=== PATIENT | male | born 1965 | race Caucasian/White ===

== ENCOUNTER → 2018-04-29 | Day surgery (SDC) | payer OTHER ==
[~2018-04-29] MED LIST: NORCO 5-325 TA1 EACH PO
--- NOTE | 2018-05-02 09:57 | H ---
[address] [address] HISTORY AND PHYSICAL Name: SAMY QUINONES Room: [facility]#: [id number] Admission: 04/29/18 Attend Phys: Diane Rodríguez MD Discharge: Date of : 69 Report #: [id number] THIS REPORT FOR: //name// CC: Diane Aguilera DATE OF SERVICE: 04/29/2018 ADMITTING DIAGNOSIS: Incarcerated chronic umbilical hernia. HISTORY OF PRESENT ILLNESS: The patient is a 52-year-old male patient of Dr. Aguilera who presented to my clinic within 24 hours of an acute onset of umbilical pain and a palpable mass, which was difficult to reduce in his office and he was sent over for evaluation and treatment. PAST MEDICAL HISTORY: He denies any significant medical history. PAST SURGICAL HISTORY: Only dental surgery for tooth extraction. MEDICATIONS: He is on no medications. ALLERGIES: He reports no known allergies. REVIEW OF SYSTEMS: Otherwise was unremarkable for any recent nausea or vomiting, but does have abdominal tenderness in the umbilical site. PHYSICAL EXAMINATION: GENERAL: He is a modestly obese male in no acute distress. HEAD, EARS, EYES, NOSE AND THROAT: Unremarkable. NECK: Supple. LUNGS: Clear. CARDIAC: Regular rate and rhythm without murmur. ABDOMEN: Soft. EXTREMITIES: Without varicosities or pitting edema. LABORATORY DATA: Will be taken. ASSESSMENT AND PLAN: Umbilical hernia repair. Risks and benefits were explained. His questions answered. He understands and wishes to proceed. <ELECTRONICALLY SIGNED> By: Diane Rodríguez MD 05/02/18 0957 [id number] Rodríguez MD /nt
--- NOTE | 2018-05-02 09:58 | OP ---
[address] [address] OPERATIVE REPORT Name: STACIESAMYJASS VALENTINE Room: [facility].#: [id number] Admission: 04/29/18 Attend Phys: Diane Rodríguez MD Discharge: Date of : 69 Report #: [id number] THIS REPORT FOR: //name// CC: Diane Aguilera DATE OF SERVICE: 04/29/2018 PREOPERATIVE DIAGNOSIS: Incarcerated umbilical hernia. POSTOPERATIVE DIAGNOSIS: Incarcerated umbilical hernia. OPERATIVE PROCEDURE: Reduction and repair of incarcerated umbilical hernia with a 4.3 cm Ventralex mesh and 0 Prolene. ANESTHESIA: Laryngeal mask with 0.5% Marcaine infiltrated into the wound site. DESCRIPTION OF PROCEDURE: The patient was placed under laryngeal mask anesthesia and the abdomen was shaved, prepped and draped in the usual sterile fashion. A timeout taken and antibiotics were given. I infiltrated in the infraumbilical crease with 0.5% Marcaine and made a 5 cm transverse curvilinear incision in the infraumbilical crease. The edges were lifted up with 2 Adson's and cautery used to dissect into the subcutaneous tissues. The hernia sac was encountered, dissected off of the umbilical stalk and reduced back into the abdominal wall defect. It was patulent enough to allow ____ this was approximately 2 cm wide, so I decided to put in a 4.3 cm Ventralex mesh. It was brought onto the field and fed into the defect and pulled up with its straps against the anterior abdominal wall; 0 Prolene was passed through 4 locations at the 12 o'clock, 3 o'clock, 6 o'clock, and 9 o'clock positions and tied securely. Then, the excess strap was cut away. We checked for bleeding points and then closure was accomplished by 3-0 PDS to re-tack the umbilical stalk down to the anterior abdominal wall and then the epidermis was closed with 4-0 PDS sutures and sealed with Dermabond and abdominal binder placed. Estimated blood loss 5 mL. Sponge and instrument count correct. The patient was taken off laryngeal mask anesthesia and returned to recovery room. <ELECTRONICALLY SIGNED> By: Diane Rodríguez MD 05/02/18 0958 [id number] Rodríguez MD /nt
== END | disposition home or self-care (01) ==
LOC: M.SUR 08:48
DX: K42.0 Umbilical hernia with obstruction, without gangrene (principal); Z79.891 Long term (current) use of opiate analgesic; Z98.890 Other specified postprocedural states

== ENCOUNTER 2019-10-28 02:43 | Emergency (ER) | payer OTHER ==
[~2019-10-28] VITALS: Ht 175.3 cm; Wt 103.9 kg
[2019-10-28 03:12] LABS: ABSOLUTE BASOPHILS 0.1 thou/uL (0.0-0.2); ABSOLUTE EOSINOPHILS 0.1 thou/uL (0.0-0.7); ABSOLUTE LYMPHOCYTES 1.6 thou/uL (0.8-5.3); ABSOLUTE NEUTROPHILS 8.6 thou/uL (1.6-8.1); BASOPHILS 0.7 %; EOSINOPHILS 0.9 %; HEMATOCRIT 44.6 % (42.0-52.0); HEMOGLOBIN 15.1 gm/dL (14.0-18.0); LYMPHOCYTES 13.9 %; MCH 30.6 pg (26.0-34.0); MCHC 33.9 g/dL (28.0-37.0); MCV 90.3 fL (80.0-100.0); MONOCYTES 9.1 %; MPV 7.4 fl. (7.2-11.1); NUCLEATED RBCS 0 /100WBC; PLATELET COUNT* 380 thou/uL (150-400); POLYS 75.4 %; RBC 4.93 mil/uL (4.50-6.00); RDW-CV 14.1 % (10.5-14.5); WBC 11.5 thou/uL (4.0-11.0)
[2019-10-28 03:21] LABS: CALCIUM 9.1 mg/dL (8.5-10.1); CREATININE 1.2 mg/dL (0.6-1.3); POTASSIUM 4.2 mmol/L (3.5-5.1)
[2019-10-28 04:17] LABS: URINE BILIRUBIN NEGATIVE (Negative); URINE BLOOD 3+ (Negative); URINE CLARITY CLEAR; URINE COLOR YELLOW; URINE GLUCOSE-RANDOM NEGATIVE (Negative); URINE KETONES NEGATIVE (Negative); URINE LEUKOCYTES-REFLEX NEGATIVE (Negative); URINE NITRITE-REFLEX NEGATIVE (Negative); URINE PROTEIN NEGATIVE (Negative); URINE SPECIFIC GRAVITY >= 1.030 (1.005-1.030); URINE UROBILINOGEN 0.2 E.U./dl (0.2-1.0)
[2019-10-28] MEDS ORDERED: PERCOCET 7.5-31 EAC1 PO (04:21)
[2019-10-28] MEDS ORDERED: ZOFRAN ODT4 MG PO (04:21)
[2019-10-28 04:35] LABS: CASTS None Seen /LPF (None Seen); SQUAMOUS NONE SEEN /LPF (0-3); URINE RBC 3-10 Few /HPF (0-2)
[2019-10-28 04:36] LABS: BACTERIA-REFLEX 1-9 Few /HPF (None Seen); CRYSTALS None Seen /LPF (None Seen); MUCUS 4-6 Moderate strn/LPF (None Seen); URINE WBC-REFLEX None Seen /HPF (0-5)
[2019-10-28 04:39] VITALS: BP 131/77
== END 2019-10-28 04:43 | disposition home or self-care (01) ==
LOC: M.ERS 02:43
PROVIDERS: Emergency Medicine
DX: N20.1 Calculus of ureter (principal); R11.2 Nausea with vomiting, unspecified; R19.7 Diarrhea, unspecified

== ENCOUNTER → 2020-06-12 | Outpatient (CLI) | payer OTHER ==
[~2020-06-12] MED LIST changes: +PERCOCET 7.5-31 EAC1 PO; +ZOFRAN ODT4 MG PO
== END ==
LOC: M.RAD 15:42
PROVIDERS: ATTEND Nurse Practitioner Family
DX: M25.462 Effusion, left knee (principal); M25.562 Pain in left knee

== ENCOUNTER → 2020-06-19 | Outpatient (CLI) | payer OTHER | LOC: M.MRI 07:27 | PROVIDERS: ATTEND Nurse Practitioner Family | DX: S83.242A Other tear of medial meniscus, current injury, left knee, initial encounter (principal); M25.462 Effusion, left knee; X58.XXXA Exposure to other specified factors, initial encounter; Y93.89 Activity, other specified; Y92.89 Other specified places as the place of occurrence of the external cause; Y99.8 Other external cause status ==

== ENCOUNTER → 2020-07-12 | Outpatient (CLI) | payer OTHER | LOC: M.LAB 15:09 | PROVIDERS: ATTEND Orthopaedic Surgery | DX: Z01.812 Encounter for preprocedural laboratory examination (principal); Z20.822 Contact with and (suspected) exposure to COVID-19 ==